=== PATIENT | male | born 1960 ===

== ENCOUNTER 2021-05-29 08:33 | Outpatient (CLI) | payer OTHER, SELFPAY ==
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
== END 2021-05-29 08:34 | disposition home or self-care (01) ==
LOC: RADOUTREAD 05-30 09:08
PROVIDERS: Visit Provider Nurse Practitioner Family
DX: M79.631 Pain in right forearm (principal)